=== PATIENT | male | born 1975 | race Caucasian/White ===

== ENCOUNTER → 2020-01-11 | Outpatient (CLI) | payer OTHER ==
--- NOTE | 2020-01-11 13:06 | RAD ---
Clinical indications: Left inguinal and scrotal pain. Findings: Duplex sonography of the scrotum and both testicles was performed including grayscale evaluation and color flow and waveform spectral analysis. The longitudinal and AP and transverse dimensions of the right testicle are 5.0 cm x 2.3 cm x 3.4 cm respectively. The right testicle is homogeneous in appearance and no testicular mass is seen.Color Doppler flow is seen within the right testicle. No abnormal hydrocele is seen on the right side. No varicocele is seen on the right side. The epididymis on the right side is normal. The longitudinal and AP and transverse dimensions of the left testicle are 4.8 cm x 2.6 cm x 3.1 cm respectively. The left testicle is homogeneous in appearance and no testicular mass is seen.Color Doppler flow is seen within the left testicle. No abnormal hydrocele is seen on the left side.A varicocele seen on the left side. The epididymis on the left side is normal. Evaluation for inguinal hernia was performed with Valsalva maneuvers. No inguinal hernia is seen on either side. IMPRESSION: No testicular mass or torsion. Varicocele on the left side. Electronically signed by: Tacho Diaz MD (01/11/2020 1:03 PM) [id number]
== END | disposition home or self-care (01) ==
LOC: US 12:16
DX: N50.82 Scrotal pain (principal)
CPT/HCPCS: 76870

== ENCOUNTER 2021-01-03 09:20 | Emergency (ER) | payer OTHER ==
[~2021-01-03] VITALS: Ht 177.8 cm; Wt 70.0 kg
--- NOTE | 2021-01-03 09:45 | RAD ---
Site ID: [id number] EXAMINATION: XR FINGER(S)_LEFT 2+VIEWS_RT. HISTORY: 45 years Male Reason: crush injury to 3rd digit / Spl. Instructions: / History: . COMPARISON: None. FINDINGS: There is a fracture through the distal tuft of the distal phalanx of the left middle finger. There is no significant displacement. Overlying soft tissue injury is seen. No fracture extension into the mi d to proximal aspect of the this bone. No intra-articular fracture. No subluxation or dislocation. Th e joint spaces and articular surfaces appear unremarkable. IMPRESSION: Fracture in the distal tuft of the distal phalanx of the left middle finger. Electronically signed by: Domenico Watt MD (01/03/2021 9:43 AM) [id number]
--- NOTE | 2021-01-03 09:51 | PHYS DOC ---
General Adult EDM: Chief Complaint: finger laceration HPI: HPI: 45-year-old male presents with left middle finger laceration and concern for fracture. Patient dropped a pool table on the finger last night about 12 hours ago. He cleaned the wound with water and placed bacitracin on it. He had more pain with it overnight and decided to come the emergency room this morning. He has a 3 cm laceration of the anterior finger to start of the fingernail. He denies any other injuries at this time. The patient went to the urgent care who gave him a tetanus shot and then told him to come to the emergency room. Review of Systems: Review of Systems: Constitutional: Denies fever or chills Eyes: Denies change in visual acuity HENT: Denies nasal congestion or sore throat Respiratory: Denies cough or shortness of breath Cardiovascular: Denies chest pain or edema GI: Denies abdominal pain, nausea, vomiting, bloody stools or diarrhea : Denies dysuria Musculoskeletal: Laceration left middle finger Integument: Denies rash Neurologic: Denies headache, focal weakness or sensory changes Endocrine: Denies polyuria or polydipsia Lymphatic: Denies swollen glands Psychiatric: Denies depression or anxiety Physical Exam: PE: Constitutional: Well developed, well nourished, no acute distress, non-toxic appearance. [] HENT: Normocephalic, atraumatic, bilateral external ears normal, oropharynx moist, no oral exudates, nose normal. [] Eyes: PERRLA, EOMI, conjunctiva normal, no discharge. [] Neck: Normal range of motion, no tenderness, supple, no stridor. [] Cardiovascular:Heart rate regular rhythm, no murmur [] Lungs & Thorax: Bilateral breath sounds clear to auscultation [] Abdomen: Bowel sounds normal, soft, no tenderness, no masses, no pulsatile masses. [] Skin: 3 cm laceration of the anterior left third digit stops at the fingernail. [] Back: No tenderness, no CVA tenderness. [] Extremities: No tenderness, no cyanosis, no clubbing, ROM intact, no edema. [] Neurologic: Alert and oriented X 3, normal motor function, normal sensory function, no focal deficits noted. [] Psychologic: Affect normal, judgement normal, mood normal. [] EKG: EKG: [] Radiology/Procedures: Radiology/Procedures: [] Heart Score: C/O Chest Pain: N/A Risk Factors: Risk Factors: DM, Current or recent (<one month) smoker, HTN, HLP, family history of CAD, obesity. Risk Scores: Score 0 - 3: 2.5% MACE over next 6 weeks - Discharge Home Score 4 - 6: 20.3% MACE over next 6 weeks - Admit for Clinical Observation Score 7 - 10: 72.7% MACE over next 6 weeks - Early Invasive Strategies Course & Med Decision Making: Course & Med Decision Making Pertinent Labs and Imaging studies reviewed. (See chart for details) Given the gaping nature of the patient's wound, I did decide to repair it. See note below for more details. Based on the patient's description, he kept it clean and I do not believe there is significant increased risk for infection. This is an open fracture according to x-ray. I will treat him with Keflex for 7 days. His tetanus was updated. [] Dragon Disclaimer: Dragon Disclaimer: This electronic medical record was generated, in whole or in part, using a voice recognition dictation system. Laceration Repair Lac Repair Indication: [] 3 cm linear laceration of left middle finger. Procedure: I obtained verbal consent from the patient for suture repair of his laceration. Risks of infection were explained. Patient was okay with closure with sutures. I anesthetized the wound with 2% lidocaine without epinephrine. 2 cc was used. Once good anesthesia was achieved, the wound was irrigated. No foreign bodies were found. I repaired the wound with four 3-0 Ethilon sutures in interrupted fashion. There was reasonable skin approximation. Bleeding was controlled. A clean dry dressing was applied. Tetanus was already up-to-date. Total repaired wound length: 3 cm Other Items: None The patient tolerated the procedure well. Complications: Delayed closure. Departure Departure: Impression: Primary Impression: Laceration of finger of left hand with damage to nail Qualified Codes: S61.313A - Laceration without foreign body of left middle finger with damage to nail, initial encounter Additional Impression: Finger fracture, left Qualified Codes: S62.663B - Nondisplaced fracture of distal phalanx of left middle finger, initial encounter for open fracture Disposition: HOME / SELF CARE / HOMELESS Condition: IMPROVED Referrals: CONOR OLIVA (PCP) Patient Instructions: Finger Fracture, Fingertip Laceration DEWEY SCOTT DO January 03, 2021 09:51
[2021-01-03] MEDS ORDERED: CEPH750C9 PO (10:45)
== END 2021-01-03 10:53 | disposition home or self-care (01) ==
LOC: ER 09:20
DX: S62.663A Nondisplaced fracture of distal phalanx of left middle finger, initial encounter for closed fracture (principal); S61.213A Laceration without foreign body of left middle finger without damage to nail, initial encounter; W18.09XA Striking against other object with subsequent fall, initial encounter; Y93.89 Activity, other specified; Y92.89 Other specified places as the place of occurrence of the external cause; Y99.8 Other external cause status
CPT/HCPCS: 12002; 73140; 99283-25

== ENCOUNTER 2021-01-13 08:53 | Emergency (ER) | payer OTHER ==
[~2021-01-13] VITALS: Ht 177.8 cm; Wt 70.0 kg
[~2021-01-13 08:53] MED LIST: CEPH750C9 PO
[2021-01-13 09:00] VITALS: BP 129/84
--- NOTE | 2021-01-13 09:24 | PHYS DOC ---
Past History Past Medical History: No Pertinent History Past Surgical History: No Surgical History Alcohol Use: Rarely General Adult EDM: Chief Complaint: SUTURE/STAPLE REMOVAL HPI: HPI: 45-year-old male presents for suture removal. He had sutures placed in his finger about 10 days ago. He is here to have them removed. He has no other concerns or complaints at this time. Review of Systems: Review of Systems: Constitutional: Denies fever or chills Eyes: Denies change in visual acuity HENT: Denies nasal congestion or sore throat Respiratory: Denies cough or shortness of breath Cardiovascular: Denies chest pain or edema GI: Denies abdominal pain, nausea, vomiting, bloody stools or diarrhea : Denies dysuria Musculoskeletal: Denies back pain or joint pain Integument: Sutures distal finger Neurologic: Denies headache, focal weakness or sensory changes Endocrine: Denies polyuria or polydipsia Lymphatic: Denies swollen glands Psychiatric: Denies depression or anxiety Allergies: Allergies: Allergies Coded Allergies Type Severity Reaction Last Updated Verified No Known Drug Allergies 01/13/21 No Physical Exam: PE: Constitutional: Well developed, well nourished, no acute distress, non-toxic appearance. [] HENT: Normocephalic, atraumatic, bilateral external ears normal, oropharynx moist, no oral exudates, nose normal. [] Eyes: PERRLA, EOMI, conjunctiva normal, no discharge. [] Neck: Normal range of motion, no tenderness, supple, no stridor. [] Cardiovascular:Heart rate regular rhythm, no murmur [] Lungs & Thorax: Bilateral breath sounds clear to auscultation [] Abdomen: Bowel sounds normal, soft, no tenderness, no masses, no pulsatile masses. [] Skin: Sutures in distal finger, skin appears to be well-healing. [] Back: No tenderness, no CVA tenderness. [] Extremities: No tenderness, no cyanosis, no clubbing, ROM intact, no edema. [] Neurologic: Alert and oriented X 3, normal motor function, normal sensory function, no focal deficits noted. [] Psychologic: Affect normal, judgement normal, mood normal. [] Current Patient Data: Vital Signs: Vital Signs Date Time Temp Pulse Resp B/P (MAP) Pulse Ox O2 Delivery O2 Flow Rate FiO2 01/13/21 09:00 96.4 74 16 129/84 (99) 98 EKG: EKG: [] Radiology/Procedures: Radiology/Procedures: [] Heart Score: C/O Chest Pain: N/A Risk Factors: Risk Factors: DM, Current or recent (<one month) smoker, HTN, HLP, family history of CAD, obesity. Risk Scores: Score 0 - 3: 2.5% MACE over next 6 weeks - Discharge Home Score 4 - 6: 20.3% MACE over next 6 weeks - Admit for Clinical Observation Score 7 - 10: 72.7% MACE over next 6 weeks - Early Invasive Strategies Course & Med Decision Making: Course & Med Decision Making Pertinent Labs and Imaging studies reviewed. (See chart for details) The sutures appear ready to be removed. They were removed by the nurse without complication. The patient is stable for discharge at this time. [] Dragon Disclaimer: Dragon Disclaimer: This electronic medical record was generated, in whole or in part, using a voice recognition dictation system. Departure Departure: Impression: Primary Impression: Encounter for removal of sutures Disposition: 01 HOME / SELF CARE / HOMELESS Condition: STABLE Patient Instructions: Suture Removal-Brief DEWEY SCOTT DO Jan 13, 2021 09:24
== END 2021-01-13 09:25 | disposition home or self-care (01) ==
LOC: ER 08:53
DX: S61.213D Laceration without foreign body of left middle finger without damage to nail, subsequent encounter (principal); X58.XXXD Exposure to other specified factors, subsequent encounter
CPT/HCPCS: 99281

== ENCOUNTER → 2021-02-07 | Outpatient (CLI) | payer OTHER ==
[2021-01-13 09:00] VITALS: BP 129/84
--- NOTE | 2021-02-07 21:16 | RAD ---
XR FINGER(S)_LEFT 2+VIEWS_RT History: Reason: INJURY TO THIRD DIGIT X 1 MONTH AGO.POSSIBLE INFECTION / Spl. Instructions: / Histo ry: Technique: AP view the hand and 2 additional views of the third digit. Comparison: None. Findings: Comminuted third distal tuft fracture with mild displacement. There is adjacent soft tissue swelling. Impression: 1. Comminuted displaced third distal tuft fracture. Electronically signed by: Lion Gifford DO (02/07/2021 9:14 PM) MARY
== END ==
LOC: RAD 18:31
PROVIDERS: ATTEND Nurse Practitioner Family
DX: S62.633A Displaced fracture of distal phalanx of left middle finger, initial encounter for closed fracture (principal); X58.XXXA Exposure to other specified factors, initial encounter; Y93.89 Activity, other specified; Y92.89 Other specified places as the place of occurrence of the external cause; Y99.8 Other external cause status
CPT/HCPCS: 73140